=== PATIENT | male | born 2000 | race Caucasian/White ===

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

== ENCOUNTER 2022-01-29 15:31 | Emergency (ER) | payer OTHER, SELFPAY ==
[2022-01-29] VITALS (19 sets, daily range): BP systolic 114–159; BP diastolic 59–130; PULSE 76–112; RESP 10–31; TEMP 36.3–36.4; O2SAT 95–100
--- NOTE | ~2022-01-29 | CT_ITS ---
EXAMINATION: CT abdomen pelvis w con DATE: 01/29/2022 16:51 INDICATION: abd pain TECHNIQUE: Computed tomography (CT) of the abdomen and pelvis was performed with 100 mL Omnipaque-300 intravenous contrast. Automated exposure control and iterative reconstruction technique were employe d. The dose-length product was 352.15 mGy-cm. COMPARISON: X-ray abdomen 06/12/2019. FINDINGS: Lower thorax: Unremarkable Liver: Normal. Biliary/Gallbladder: Gallbladder is normal. No bile duct dilation. Pancreas: No mass or duct dilation. Spleen: Normal. Adrenals:No mass. Kidneys: No mass, stone, or hydronephrosis. GI tract: No small or large bowel dilation. Normal appendix. Mesentery/Peritoneum: No ascites, mass, or free air. Retroperitoneum: No mass. Pelvis: Pelvic organs are within normal limits. Soft Tissues: Soft tissues and body wall unremarkable. Bones: No acute osseous finding. IMPRESSION: No acute abdominopelvic process. Reviewed, dictated and finalized at location K.
[2022-01-29 15:54] LABS: Basophils Percent Auto 0.2 % (0.2-1.2); Eosinophils Percent Auto 0.1 % (0-4.4); Hematocrit 41.6 % (42.0-52.0); Hemoglobin 14.8 g/dL (14.0-18.0); Immature Granulocyte Absolute 0.04 K/mm3 (0.00-0.031); Immature Granulocyte Percent A 0.3 % (0-0.5); Lymphocytes Absolute Auto 0.65 K/mm3 (0.9-3.2); Lymphocytes Percent Auto 4.7 % (18.3-44.2); Mean Corpuscular HGB Conc 35.6 g/dl (32-36); Mean Corpuscular Hemoglobin 28.8 pg (26-34); Mean Corpuscular Volume 81.1 fl (80-100); Mean Platelet Volume 9.9 fl (7.4-10.4); Monocytes Absolute Auto 0.7 K/mm3 (0.1-0.6); Monocytes Percent Auto 4.8 % (2.6-8.5); Neutrophils Absolute Auto 12.5 K/mm3 (1.3-6.7); Neutrophils Percent Auto 89.9 % (45.5-73.1); Platelet Count Result 313 k/mm3 (150-375); Red Blood Count 5.13 M/mm3 (4.6-6.20); Red Cell Distribution Width 12.5 % (11.5-14.5); White Blood Count 13.9 K/mm3 (4.5-10.0)
[2022-01-29 16:04] LABS: Alanine Aminotransferase 21 U/L (6-50); Albumin Level 5.1 g/dL (3.7-5.6); Alkaline Phosphatase 68 U/L (58-237); Anion Gap 11 mmol/L (8-16); Aspartate Amino Transferase 23 U/L (17-59); Bilirubin,Total 1.2 mg/dL (0.2-1.3); Blood Urea Nitrogen 14 mg/dL (8-21); Carbon Dioxide 21 mmol/L (22-30); Chloride 109 mmol/L (98-107); Estimated CRCL calculation 94 ml/min; Estimated Glomerular Filt Rate > 60; Glucose 130 mg/dL (65-110); Lipase 86 U/L (23-300); Potassium 4.1 mmol/L (3.4-5.0); Sodium 141 mmol/L (134-143)
[2022-01-29] MEDS: SODIUM CHLORIDE 0.9% IV 1,000 ML 999 ML IV CONT ×2 (16:09→17:06)
[2022-01-29] MEDS: FAMOTIDINE 20 MG/2 ML VIAL IV PUSH (16:09)
[2022-01-29] MEDS: ONDANSETRON INJ 4 MG/2 ML VIAL IV PUSH (16:09)
--- NOTE | 2022-01-29 16:17 | ED.ABDPAIN ---
HPI - Abdominal Pain General Chief Complaint: Abdominal Pain Stated Complaint: vomiting Time Seen by Provider: 01/29/22 15:36 Source: RN notes reviewed History of Present Illness HPI narrative: Patient presents emergency room from home for nausea vomiting diarrhea. Patient states symptoms began approximately 5 AM this morning. States has had numerous episodes of nausea vomiting as well as diarrhea. States is associated with abdominal pain that is diffuse throughout the abdomen described as sharp and stabbing. States he has had no fevers or chills denies chest pain shortness of breath or any other symptoms. Did try taking Pepto-Bismol and ibuprofen at home with no relief and believes he threw up the ibuprofen Related Data Allergies Allergy/AdvReac Type Severity Reaction Status Date / Time No Known Allergies Allergy Verified 01/06/21 10:26 Review of Systems Review of Systems: Gen.: Denies fevers or chills ENT: Denies congestion Respiratory: Denies shortness of breath or cough CV: Denies chest pain or palpitations GI: See HPI Musculoskeletal: Denies back pain or muscle pain Neuro: Denies numbness, tingling, weakness or focal weakness Skin: Denies rash Except as documented, all other systems reviewed and negative [facility] Past Medical History Medical History Healthy adolescent Surgical History Surgical History No history of previous surgery Social History Social History Smoking status: Never smoker Alcohol intake: never Substance use: never Exam Narrative: APPEARANCE: No acute distress, nontoxic, resting in bed HEENT: Normocephalic, atraumatic, OMM RESPIRATORY: No respiratory distress, clear to auscultation bilaterally with no rhonchi wheezing or rales CARDIOVASCULAR: RRR s murmur ABDOMINAL: Soft nondistended diffusely tender palpation no rebound or guarding MUSCULOSKELETAl: Moves all extremities. No clubbing, cyanosis or edema. NEURO: Awake and alert. Following commands, speech normal, no focal deficits SKIN:: Warm, dry. Normal Color PSYCHIATRIC: Normal affect/mood Course Course Emergency Course: Patient able to drink in ED with no emesis Patient states that they are feeling much better at this time. States abdominal pain has resolved. Repeat abdominal exam shows the patient's abdomen to be soft and nontender. Discussed with patient results of workup and diagnosis. Discussed need for follow-up with primary care physician, reasons to return to the emergency department in proper use of medication. Patient understands and agrees to current treatment plan Vital Signs Vital signs: Vital Signs Temperature 97.4 F L 01/29/22 15:32 Pulse Rate 112 H 01/29/22 15:32 Respiratory Rate 16 01/29/22 15:32 Blood Pressure 114/96 H 01/29/22 15:32 Pulse Oximetry 100 01/29/22 15:32 Oxygen Delivery Room Air 01/29/22 15:32 Temperature 97.6 F 01/29/22 16:15 Pulse Rate 86 01/29/22 17:45 Respiratory Rate 13 01/29/22 17:45 Blood Pressure 123/59 L 01/29/22 17:16 Pulse Oximetry 100 01/29/22 17:45 Oxygen Delivery Room Air 01/29/22 15:40 MDM - Abdominal Pain MDM Narrative Medical decision making narrative: Patient's abdomen is soft without significant pain or signs of surgical abdomen on serial exams. Lab and x-ray evaluations are reviewed and patient is felt to be a reasonable candidate for outpatient management. Patient was instructed as to limitations of x-ray and laboratory evaluation and encouraged to return to ED or primary physician for repeat exam in 12 hours if continued or worsening pain Lab Data Result diagrams: 01/29/22 15:46 01/29/22 15:46 Labs: Lab Results 01/29/22 01/29/22 01/29/22 Range/Units 15:46 15:46 17:10 WBC 13.9 H (4.5-10.0) K/mm3 RBC 5.13 (4.6-6.20
[2022-01-29 17:19] LABS: Appearance Urine Clear (Clear); Bilirubin Urine Negative (Negative); Blood Urine Negative (Negative); Color Urine Yellow (Yellow); Glucose Urine UA Negative (Negative); Ketones Urine 3+ mg/dL (Negative); Leukocyte Esterase Ur Negative LEU/UL (Negative); Nitrate Urine Negative (Negative); Protein Urine Negative (Negative); Urobilinogen Urine 0.2 mg/dL (<2.0); pH Urine 7.5 (5.0-9.0)
[2022-01-29 17:22] LABS: Mucus Urine Rare /lpf; WBC Urine 0-3 /hpf
[2022-01-29 17:23] LABS: Add Urine Microscopic? YES
== END 2022-01-29 18:56 | disposition home or self-care (01) ==
PROVIDERS: Emergency Provider Emergency Medicine
DX: R11.2 Nausea with vomiting, unspecified (principal); R19.7 Diarrhea, unspecified
CPT/HCPCS: 36415; 74177; 80053; 81001; 83690; 85025; 96361; 96365; 96375; 99284; J0131; J2405; J7030; Q9967

== ENCOUNTER 2023-09-25 12:57 | Emergency (ER) | payer OTHER, SELFPAY ==
--- NOTE | ~2023-09-25 | XR_ITS ---
EXAMINATION: XR hand RT min 3V INDICATION: Right hand pain, initial encounter TECHNIQUE: Three views of the right hand are obtained. COMPARISON: None available FINDINGS: There is an acute, traumatic, closed, comminuted fracture in the distal neck of the fifth m etacarpal. No fracture is identified. There is soft tissue swelling near the fracture. IMPRESSION: 1. Acute, comminuted fracture in the distal neck of the fifth metacarpal. Reviewed, dictated and finalized at location B. [facility]
[2023-09-25 12:58] VITALS: BP 142/84; PULSE 103; RESP 18; TEMP 36.4; O2SAT 100
--- NOTE | 2023-09-25 15:12 | ED.UPPEXIN ---
HPI - Extremity Injury (Upper) General Chief Complaint: Extremity Injury, Upper Stated Complaint: right wrist injury Time Seen by Provider: 09/25/23 15:08 History of Present Illness HPI narrative: Patient is a healthy 22-year-old male here with a right hand injury. He is right-handed. He states that around 3:00 a.m. last night he punched a basketball hoop with his right hand. He notes immediate pain. He has taken ibuprofen and Tylenol for the pain with minimal relief. He is here to the emergency department today for evaluation for this hand injury and is worried that he may have broken his hand. He denies punching a human, denies fight bite. Notes pain with ROM of the hand and pinky finger on the right hand but does have normal movement and sensation. Related Data Allergies Allergy/AdvReac Type Severity Reaction Status Date / Time No Known Allergies Allergy Verified 01/06/21 10:26 Review of Systems Review of Systems: All systems reviewed & are unremarkable except as noted in HPI and below PMFSH Past Medical History Medical History Healthy adolescent Surgical History Surgical History No history of previous surgery Social History Social History Smoking status: Never smoker Alcohol intake: never Substance use: never Exam Narrative: GENERAL: Well-appearing, well-nourished, and in no acute distress. HEAD: Normocephalic, atraumatic. EYES: PERRLA and EOMI. ENT: Nares clear. Mucous membranes moist. NECK: Supple. CHEST: Clear to auscultation. No respiratory distress. HEART: Regular rate and rhythm. Normal peripheral pulses. ABDOMEN: Soft, nontender, nondistended. EXTREMITIES: Tenderness over the 5th metacarpal on the right side, edema with some faint bruising on the palmar aspect appreciated. Strong radial pulse. Normal capillary refill throughout the hand. Some decreased range of motion actively of the 5th digit on the right hand due to pain however normal passive range of motion is appreciated. SKIN: Warm, dry, no rash. Abrasion noted to PIP on the 3rd digit of the right hand, no active bleeding. NEURO: No focal deficits. Alert and oriented x3. PSYCH: Normal mood and affect. Course Course Emergency Course: Chart review performed. Patient here with R hand injury. Triage vitals show mild tachycardia, otherwise normal. XR shows acute, comminuted fracture of the distal neck of the fifth metacarpal. Patient seen evaluated, no acute distress. Patient adamantly denies fight bite. X-ray shows mildly angulated 5th metacarpal fracture. Hematoma block performed with some direct traction and molding during ulnar gutter splint placement. Family is in a hurry and would like to forego repeat x-ray and follow-up outpatient with orthopedic surgery/hand surgery. The results of pertinent diagnostic studies and exam findings were discussed. The patient?s provisional diagnosis and plan of care were discussed with the patient and present family. The patient and/or present family expressed understanding of the diagnosis and plan. The nurse was instructed to provide written instructions and appropriate follow-up information. The patient understands their need and responsibility to obtain additional follow-up as instructed. The risks of medications administered and prescribed were discussed with the patient and family present. Vital Signs Vital signs: Vital Signs Temperature 97.5 F L 09/25/23 12:58 Pulse Rate 103 H 09/25/23 12:58 Respiratory Rate 18 09/25/23 12:58 Blood Pressure 142/84 H 09/25/23 12:58 Pulse Oximetry 100 09/25/23 12:58 Oxygen Delivery Room Air 09/25/23 12:58 Temperature 97.5 F L 09/25/23 12:58 Pulse Rate 103 H 09/25/23 12:58 Respiratory Rate 18 09/25/23 12:58 Blood Pressure 142/84 H 09/25/23 12:58 Pulse
[2023-09-25] MEDS: HYDROcodone/acetaminophen (*CRX) 5-325 MG TABLET 1 TAB PO (16:40)
[2023-09-25 16:42] VITALS: BP 140/84; PULSE 88; RESP 20; O2SAT 100
== END 2023-09-25 16:50 | disposition home or self-care (01) ==
LOC: ANHED 16:48
PROVIDERS: Emergency Provider Student in an Organized Health Care Education/Training Program
DX: S62.366A Nondisplaced fracture of neck of fifth metacarpal bone, right hand, initial encounter for closed fracture (principal); W21.89XA Striking against or struck by other sports equipment, initial encounter
CPT/HCPCS: 26605; 73130; 99285; A9270

== ENCOUNTER 2023-10-17 14:45 | Outpatient (CLI) | payer OTHER, SELFPAY ==
--- NOTE | ~2023-10-17 | XR_ITS ---
EXAM: XR hand RT min 3V DATE: 10/17/2023 15:01 HISTORY: right 5th mc neck fracture . COMPARISON: 09/25/2023. FINDINGS: Normal mineralization. Redemonstration of the comminuted distal fifth metacarpal fracture, fracture lines remain visible, only minimal callus formation appreciated. Stable alignment. No new a cute fracture or dislocation. No lytic or blastic lesion. Joint spaces are maintained. No erosion or periosteal change. Soft tissues within normal limits. IMPRESSION: Minimal early healing change is present in the comminuted distal right fifth metacarpal f racture. Reviewed, dictated and finalized at location K. IMPRESSION: Minimal early healing change is present in the comminuted distal ri ght fifth metacarpal fracture.
== END 2023-10-17 14:46 | disposition home or self-care (01) ==
LOC: ANHIMG 14:47
PROVIDERS: Visit Provider Plastic Surgery
DX: S62.306D Unspecified fracture of fifth metacarpal bone, right hand, subsequent encounter for fracture with routine healing (principal)
CPT/HCPCS: 73130

== ENCOUNTER 2023-11-07 13:18 | Outpatient (CLI) | payer OTHER, SELFPAY ==
--- NOTE | ~2023-11-07 | XR_ITS ---
XR hand RT min 3V DATE: 11/07/2023 13:33 INDICATION: Fracture TECHNIQUE: 3 views COMPARISON: 10/17/2023 right hand FINDINGS: There is some new bone formation including organized periosteal reaction bridging the fract ure of the neck of the fifth metacarpal bone, without significant change in position or alignment com pared to 10/17/2023. IMPRESSION: Healing boxjuliana's fracture of fifth metacarpal neck Reviewed, dictated and finalized at location B. IMPRESSION: Healing boxer's fracture of fifth metacarpal neck
== END 2023-11-07 13:19 | disposition home or self-care (01) ==
PROVIDERS: Visit Provider Physician Assistant Surgical
DX: S62.306D Unspecified fracture of fifth metacarpal bone, right hand, subsequent encounter for fracture with routine healing (principal); X58.XXXD Exposure to other specified factors, subsequent encounter
CPT/HCPCS: 73130

== ENCOUNTER 2023-12-04 21:48 | Emergency (ER) | payer OTHER, SELFPAY ==
--- NOTE | ~2023-12-04 | CT_ITS ---
EXAMINATION: CT cervical spine wo con DATE: 12/04/2023 23:06 INDICATION: crush injury TECHNIQUE: Computed tomography (CT) of the cervical spine was performed without intravenous contrast. Automated exposure control and iterative reconstruction technique were employed. The dose-length pro duct was 490.04 mGy-cm. COMPARISON: None. FINDINGS: Vertebral Body Alignment: Intact. Craniocervical and atlantoaxial alignment: No significant degenerative change. Alignment intact. Osseous structures/fracture: No evidence of a lytic or blastic process in the visualized spine. No e vidence of acute fracture. Cervical soft tissues: The paraspinal soft tissues planes are maintained. Degenerative changes: No significant degenerative changes. IMPRESSION: No acute fracture or traumatic malalignment in the cervical spine. Reviewed, dictated and finalized at location K.
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
[2023-12-04 21:54] VITALS: BP 130/68; PULSE 110; RESP 16; TEMP 37.4; O2SAT 99
[2023-12-04 22:01] VITALS: RESP 16; O2SAT 98
[2023-12-04 22:23] LABS: Basophils Absolute Auto 0.1 K/mm3 (0.0-0.1); Basophils Percent Auto 0.5 % (0.2-1.2); Eosinophils Absolute Auto 0.1 K/mm3 (0-0.3); Eosinophils Percent Auto 0.6 % (0-4.4); Hematocrit 38.4 % (42.0-52.0); Hemoglobin 13.7 g/dL (14.0-18.0); Immature Granulocyte Absolute 0.04 K/mm3 (0.00-0.031); Immature Granulocyte Percent A 0.3 % (0-0.5); Lymphocytes Absolute Auto 1.87 K/mm3 (0.9-3.2); Lymphocytes Percent Auto 15.7 % (18.3-44.2); Mean Corpuscular HGB Conc 35.7 g/dl (32-36); Mean Corpuscular Hemoglobin 30.4 pg (26-34); Mean Corpuscular Volume 85.1 fl (80-100); Mean Platelet Volume 9.5 fl (7.4-10.4); Monocytes Absolute Auto 0.9 K/mm3 (0.1-0.6); Monocytes Percent Auto 7.9 % (2.6-8.5); Neutrophils Absolute Auto 8.9 K/mm3 (1.3-6.7); Platelet Count Result 309 k/mm3 (150-375); Red Blood Count 4.51 M/mm3 (4.6-6.20); Red Cell Distribution Width 12.3 % (11.5-14.5); White Blood Count 11.9 K/mm3 (4.5-10.0)
[2023-12-04 22:34] LABS: INR 1.1; Partial Thromboplastin Time 25.7 Seconds (22.3-36.8); Prothrombin Time 14.3 Seconds (11.1-14.7)
[2023-12-04 22:35] LABS: Alanine Aminotransferase 19 U/L (6-50); Albumin Level 4.8 g/dL (3.5-5.1); Alkaline Phosphatase 49 U/L (38-126); Anion Gap 9 mmol/L (4-12); Aspartate Amino Transferase 27 U/L (17-59); Bilirubin,Total 0.8 mg/dL (0.2-1.3); Blood Urea Nitrogen 14 mg/dL (9-20); Calcium 9.6 mg/dL (8.4-10.2); Carbon Dioxide 25 mmol/L (22-30); Chloride 104 mmol/L (98-107); Creatine Kinase 215 U/L (55-170); Estimated CRCL calculation 92 ml/min; Estimated Glomerular Filt Rate > 60; Glucose 98 mg/dL (65-110); Potassium 3.9 mmol/L (3.4-5.0); Sodium 138 mmol/L (137-145)
[2023-12-04 22:37] LABS: Appearance Urine Clear (Clear); Bacteria Urine None Seen /hpf; Bilirubin Urine Negative (Negative); Blood Urine Negative (Negative); Color Urine Dark Yellow (Yellow); Glucose Urine UA Negative (Negative); Ketones Urine Trace mg/dL (Negative); Leukocyte Esterase Ur Trace LEU/UL (Negative); Nitrate Urine Negative (Negative); Protein Urine Trace mg/dL (Negative); RBC Urine 0-2 /hpf (0-2); Squamous Epithelial Cell Urine None Seen /hpf (Few); WBC Urine 0-5 /hpf (0-3)
[2023-12-04 22:39] LABS: Add Urine Microscopic? YES
[2023-12-04] MEDS: SODIUM CHLORIDE 0.9% IV 1,000 ML 999 ML IV CONT (23:10)
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
[2023-12-05 00:11] VITALS: BP 110/71; PULSE 89; RESP 18; O2SAT 100
== END 2023-12-05 00:12 | disposition home or self-care (01) ==
PROVIDERS: Emergency Provider Physician Assistant
DX: S30.0XXA Contusion of lower back and pelvis, initial encounter (principal); V03.00XA Pedestrian on foot injured in collision with car, pick-up truck or van in nontraffic accident, initial encounter
CPT/HCPCS: 36415; 70450; 71260; 72125; 72129; 72132; 74177; 80053; 81001; 82550; 85025; 85610; 85730; 96360; 99284; J7030; Q9967